=== PATIENT | female | born 1995 | race Two or more races ===

== ENCOUNTER → 2019-07-07 | Outpatient (CLI) | payer BC ==
[2019-07-07 08:22] LABS: Basophils # (auto) 0 10 ^3/uL (0-0.2); Basophils % (auto) 0.6 % (0.0-2.0); Eosinophils # (auto) 0.1 10 ^3/uL (0-0.8); Eosinophils % (auto) 1.8 % (0.0-7.0); Hematocrit 38.6 % (36.0-46.0); Hemoglobin 12.6 g/dL (12.2-16.2); Lymphocytes # (auto) 1.1 10 ^3/uL (0.4-5.4); Lymphocytes % (auto) 25.7 % (10.0-50.0); Mean Corpuscular Hemoglobin 28.4 pg (28.0-32.0); Mean Corpuscular Hgb Conc. 32.6 g/dL (32.0-36.0); Monocytes # (auto) 0.3 10 ^3/uL (0-1.3); Monocytes % (auto) 6.1 % (0.0-12.0); Neutrophils # (auto) 2.8 10 ^3/uL (1.6-8.6); Neutrophils % (auto) 65.8 % (37.0-80.0); Platelet Count (auto) 216 10^3/uL (140-450); Red Blood Cells 4.44 10^6/uL (4.0-5.20); Red Cell Distribution Width 12.6 % (11.8-14.3); White Blood Cell 4.2 10^3/uL (4.4-10.8)
[2019-07-07 08:45] LABS: Calcium 8.9 mg/dL (8.5-10.1); Potassium 4.1 mmol/L (3.5-5.1)
[2019-07-07 08:53] LABS: Albumin 3.6 g/dL (3.4-5.0); BUN/Creatinine Ratio 10.3; Bilirubin, Total 0.3 mg/dL (0.2-1.0); Total Protein 7.8 g/dL (6.4-8.2)
== END | disposition home or self-care (01) ==
LOC: LAB 07:44
PROVIDERS: ATTEND Physician Assistant
DX: Z00.00 Encounter for general adult medical examination without abnormal findings (principal); M54.6 Pain in thoracic spine; M54.2 Cervicalgia; F41.9 Anxiety disorder, unspecified; J30.2 Other seasonal allergic rhinitis; N30.00 Acute cystitis without hematuria
CPT/HCPCS: 36415; 80053; 80061; 85025

== ENCOUNTER → 2020-01-01 | Day surgery (SDC) | payer BC ==
[2019-12-28 11:52] LABS: Basophils # (auto) 0.1 10 ^3/uL (0-0.2); Basophils % (auto) 1.2 % (0.0-2.0); Eosinophils # (auto) 0.1 10 ^3/uL (0-0.8); Eosinophils % (auto) 2.9 % (0.0-7.0); Hematocrit 39.1 % (36.0-46.0); Hemoglobin 12.8 g/dL (12.2-16.2); Lymphocytes # (auto) 1.5 10 ^3/uL (0.4-5.4); Lymphocytes % (auto) 30.1 % (10.0-50.0); Mean Corpuscular Hemoglobin 28.5 pg (28.0-32.0); Mean Corpuscular Hgb Conc. 32.8 g/dL (32.0-36.0); Monocytes # (auto) 0.4 10 ^3/uL (0-1.3); Monocytes % (auto) 8.7 % (0.0-12.0); Neutrophils # (auto) 2.8 10 ^3/uL (1.6-8.6); Neutrophils % (auto) 57.1 % (37.0-80.0); Nucleated Red Blood Cells % 0.1 %; Platelet Count (auto) 229 10^3/uL (140-450); Red Cell Distribution Width 13.7 % (11.8-14.3); White Blood Cell 4.9 10^3/uL (4.4-10.8)
[2019-12-28 12:14] LABS: INR 1.09 (0.9-1.15); Partial Thromboplastin Time 31.9 sec (23.0-31.2)
[~2020-01-01] VITALS: Ht 160 cm; Wt 54.4 kg
[~2020-01-01] MED LIST: LIDOCAINE VISCOUS 2% 15ML UD ONE; SODIUM CHLORIDE LOCK 10 ML ONE; diphenhdrAMINE HCL 50 MG/1 ML VL ONE
[2020-01-01] MEDS: MIDAZOLAM HCL 5 MG/ML-1ML VIAL ONE ×3 (13:37→13:43)
[2020-01-01] MEDS: fentaNYL CITRATE 100 MCG/2 ML VL ONE ×3 (13:37→13:43)
[2020-01-01 14:27] VITALS: BP 111/71
== END | disposition home or self-care (01) ==
LOC: GI 11:48
PROVIDERS: ATTEND Internal Medicine Gastroenterology
DX: R11.2 Nausea with vomiting, unspecified (principal); K29.50 Unspecified chronic gastritis without bleeding; Z20.828 Contact with and (suspected) exposure to other viral communicable diseases; Z98.890 Other specified postprocedural states; Z79.899 Other long term (current) drug therapy
CPT/HCPCS: 36415; 43239; 81025; 85025; 85610; 85730; 88305; 88342; J1200; J2250; J3010; J7030; U0003; 99152

== ENCOUNTER 2020-02-23 06:14 | Inpatient (IN) | payer BC ==
[2020-02-18 09:36] LABS: Basophils # (auto) 0 10 ^3/uL (0-0.2); Eosinophils # (auto) 0.1 10 ^3/uL (0-0.8); Eosinophils % (auto) 1.9 % (0.0-7.0); Hematocrit 42.6 % (36.0-46.0); Hemoglobin 13.8 g/dL (12.2-16.2); Lymphocytes # (auto) 1.1 10 ^3/uL (0.4-5.4); Lymphocytes % (auto) 28.5 % (10.0-50.0); Mean Corpuscular Hemoglobin 28.7 pg (28.0-32.0); Mean Corpuscular Hgb Conc. 32.3 g/dL (32.0-36.0); Mean Corpuscular Volume 88.9 fL (80.0-100.0); Monocytes # (auto) 0.2 10 ^3/uL (0-1.3); Monocytes % (auto) 6.3 % (0.0-12.0); Neutrophils # (auto) 2.3 10 ^3/uL (1.6-8.6); Neutrophils % (auto) 62.3 % (37.0-80.0); Nucleated Red Blood Cells % 0.1 %; Platelet Count (auto) 306 10^3/uL (140-450); Red Cell Distribution Width 13.2 % (11.8-14.3); White Blood Cell 3.7 10^3/uL (4.4-10.8)
[2020-02-18 09:45] LABS: Urine Bacteria NONE SEEN /hpf (None Seen); Urine Blood Negative /uL (Negative); Urine Specific Gravity 1.024 (1.001-1.035); Urine WBC 1 /hpf (0 - 5)
[2020-02-18 09:54] LABS: INR 1.07 (0.9-1.15); Partial Thromboplastin Time 30.2 sec (23.0-31.2)
[2020-02-18 09:59] LABS: Albumin 4.1 g/dL (3.4-5.0); Calcium 9.2 mg/dL (8.5-10.1)
[2020-02-18 10:05] LABS: BUN/Creatinine Ratio 7.3; Bilirubin, Total 0.4 mg/dL (0.2-1.0); Total Protein 8.2 g/dL (6.4-8.2)
[~2020-02-23] VITALS: Ht 160 cm; Wt 58.7 kg
[~2020-02-23 06:14] MED LIST changes: -LIDOCAINE VISCOUS 2% 15ML UD ONE; +OMEP20TA PO; -SODIUM CHLORIDE LOCK 10 ML ONE; -diphenhdrAMINE HCL 50 MG/1 ML VL ONE
[2020-02-23] MEDS ORDERED: ceFAZolin 1GM/50ML 50 ML IV ONE (06:59)
[2020-02-23] MEDS ORDERED: ROCURONIUM 10MG/ML 10ML VIAL IV ONE (07:10)
[2020-02-23] MEDS ORDERED: fentaNYL CITRATE 100 MCG/2 ML VL ONE (07:21)
[2020-02-23] MEDS ORDERED: MEPERIDINE HCL (50 MG/ML) 1 ML VIAL ONE (07:21)
[2020-02-23] MEDS ORDERED: MIDAZOLAM HCL 1MG/1ML-2 ML VIAL ONE (07:22)
[2020-02-23] MEDS ORDERED: DexAMETHasone SOD PHOS 10MG/1ML VIAL INJ ONE (07:26)
[2020-02-23] MEDS ORDERED: PROPOFOL 10 MG/ML 20 ML IV ONE (07:52)
[2020-02-23] MEDS: D5W/SOD CHL 0.45%/KCL 20MEQ 1,000 ML IV SCH ×2 (08:30→22:18)
[2020-02-23] MEDS ORDERED: HYDROmorphone HCL 2 MG/ML VL IV PRN ×2 (08:30→08:45)
[2020-02-23] MEDS ORDERED: ONDANSETRON HCL 4 MG/2 ML VIAL IV PRN ×2 (08:30→08:45)
[2020-02-23] MEDS ORDERED: ACETAMINOPHEN/CODEINE#3 (300/30mg) TAB PO PRN (08:30)
[2020-02-23] MEDS ORDERED: MIDAZOLAM HCL 1MG/1ML-2 ML VIAL IV PRN (08:45)
[2020-02-23] MEDS ORDERED: MORPHINE SULFATE 4 MG/ML SYR/VIAL IV PRN (08:45)
[2020-02-23] MEDS ORDERED: ePHEDrine SULFATE 50 MG/ML AMP IV PRN (08:45)
[2020-02-23] MEDS ORDERED: KETOROLAC TROMETH 30 MG/ML 1ML VIAL IV ONE (08:45)
[2020-02-23] MEDS ORDERED: LABETALOL HCL 5 MG/ML 4ML SYRINGE IV PRN (08:45)
[2020-02-23] MEDS ORDERED: cefTRIAXone 1GM/50ML D5W 50 ML IV SCH (09:00)
[2020-02-23] MEDS ORDERED: PANTOPRAZOLE 40 MG/10 ML VIAL INJ IV SCH (10:00)
[2020-02-23 17:20] VITALS: BP 107/67
[2020-02-23 18:00] VITALS: BP 116/72
--- NOTE | 2020-02-23 18:30 | NUR ---
CAME ON BED FROM POST OP, RECEIVED PATIENT ALERT AND ORIENTED X4, NOT IN DISTRESS, CLEAR LS IN BILATERAL LUNG LOBES, RR=18 SAT=98%, DENIED SOB AND CP, DEEP BREATHING AND COUGHING ENCOURAGED, VERBALIZED UNDERSTANDING, ABDOMEN LAPAROSCOPIC INCISIONS X3 INTACT COVERED WITH DERMA SEAL, NO REDNESS OR EDEMA NOTED, TOLERATING ABDOMINAL BINDER, GENERAL SKIN DRY AND INTACT, VS T=98.2 RR=18 SAT=98% RA, HEART R=78 XT=824/68, HEAD OF BED ELEVATED, BED ON LOW POSITION, RAILS UP X2, CALL LIGHT ON REACH, WILL CONTINUE MONITORING.
--- NOTE | 2020-02-23 19:40 | NUR ---
TOLERATED CLEAR LIQUID DIET DINNER TRAY WELL, OUT OF BED X1 WITH OUT ASSISTANCE, TOLERATED WELL, RESTING ON BED, REPORT WAS GIVEN TO THE SEISMOLOGY TEACHER RN.
[2020-02-23 22:00] VITALS: BP 123/79
[2020-02-24 05:00] VITALS: BP 102/63
[2020-02-24 06:53] LABS: Basophils # (auto) 0 10 ^3/uL (0-0.2); Basophils % (auto) 0.2 % (0.0-2.0); Eosinophils # (auto) 0 10 ^3/uL (0-0.8); Eosinophils % (auto) 0.1 % (0.0-7.0); Hematocrit 38.9 % (36.0-46.0); Hemoglobin 12.6 g/dL (12.2-16.2); Lymphocytes # (auto) 1.2 10 ^3/uL (0.4-5.4); Lymphocytes % (auto) 14.4 % (10.0-50.0); Mean Corpuscular Hemoglobin 28.6 pg (28.0-32.0); Mean Corpuscular Hgb Conc. 32.4 g/dL (32.0-36.0); Mean Corpuscular Volume 88.1 fL (80.0-100.0); Monocytes # (auto) 0.7 10 ^3/uL (0-1.3); Monocytes % (auto) 8.3 % (0.0-12.0); Neutrophils # (auto) 6.4 10 ^3/uL (1.6-8.6); Nucleated Red Blood Cells % 0.1 %; Platelet Count (auto) 247 10^3/uL (140-450); Red Blood Cells 4.42 10^6/uL (4.0-5.20); Red Cell Distribution Width 13.1 % (11.8-14.3); White Blood Cell 8.3 10^3/uL (4.4-10.8)
[2020-02-24 07:08] LABS: Albumin 3.6 g/dL (3.4-5.0); Potassium 3.5 mmol/L (3.5-5.1)
[2020-02-24 07:12] LABS: BUN/Creatinine Ratio 5.4; Bilirubin, Total 0.5 mg/dL (0.2-1.0); Total Protein 7.6 g/dL (6.4-8.2)
--- NOTE | 2020-02-24 07:30 | NUR ---
Opening Shift Note Assumed care of patient, awake and alert. No S/S of distress/SOB or pain. Bed is low, locked with 2x side rails up. Call light is within reach. Instructed on POC and to call for assist PRN, will continue to monitor for changes Q1hr and PRN.
--- NOTE | 2020-02-24 08:36 | NUR ---
Report received from weight shifter RN and was given to Idania GA day shift.
[2020-02-24 09:00] VITALS: BP 109/69
[2020-02-24] MEDS ORDERED: traMADol HCL 50 MG TAB PO PRN (09:00)
[2020-02-24] MEDS ORDERED: ONDA-144 PO (09:27)
[2020-02-24] MEDS ORDERED: PANT40T PO (09:27)
[2020-02-24] MEDS ORDERED: CEPH250C PO (09:27)
[2020-02-24] MEDS ORDERED: CEPHALEXIN 250 MG CAP PO SCH (10:00)
[2020-02-24] MEDS ORDERED: PANTOPRAZOLE 40 MG TAB PO SCH (10:00)
[2020-02-24 13:00] VITALS: BP 122/69
[2020-02-24 14:02] VITALS: BP 122/69
--- NOTE | 2020-02-24 16:09 | NUR ---
Discharge instructions given as ordered. Encourage to follow up with PMD as instructed. All questions and concerns addressed. Patient verbalized understanding. Patient given hard copy of Tramadol prescription. IV removed with catheter intact, pressure dressing applied. Patient taken to vehicle via wheelchair with all personal belongings, accompanied by staff. No distress noted at time of departure.
== END 2020-02-24 16:10 | disposition home or self-care (01) | DRG 419 ==
LOC: SUR 06:14 → OVERFLOW 06:15 → WEST WING 17:01
PROVIDERS: ADMIT Internal Medicine; ATTEND Internal Medicine
PROC: 0FT44ZZ Resection of Gallbladder, Percutaneous Endoscopic Approach (ICD-10-PCS; principal; 2020-02-22)
DX: K80.10 Calculus of gallbladder with chronic cholecystitis without obstruction (principal); Z20.828 Contact with and (suspected) exposure to other viral communicable diseases; K21.9 Gastro-esophageal reflux disease without esophagitis; Z90.49 Acquired absence of other specified parts of digestive tract
CPT/HCPCS: 36415; 80053; 81001; 84702; 85025; 85610; 85730; 86850; 86900; 86901; C9113; G0378; J0690; J1100; J2250; J2405; J2704

== ENCOUNTER 2021-07-03 16:32 | Emergency (ER) | payer BC, MEDICAID ==
[~2021-07-03] VITALS: Ht 160 cm; Wt 54.4 kg
[~2021-07-03 16:32] MED LIST changes: +CEPH-322 PO; +ONDA-144 PO; +PANT40T PO
[2021-07-03 19:05] LABS: Basophils # (auto) 0.1 10 ^3/uL (0-0.2); Basophils % (auto) 1.9 % (0.0-2.0); Eosinophils # (auto) 0.1 10 ^3/uL (0-0.8); Hematocrit 36.7 % (36.0-46.0); Hemoglobin 12.3 g/dL (12.2-16.2); Lymphocytes # (auto) 1.6 10 ^3/uL (0.4-5.4); Lymphocytes % (auto) 26.6 % (10.0-50.0); Mean Corpuscular Hemoglobin 28.6 pg (28.0-32.0); Mean Corpuscular Hgb Conc. 33.4 g/dL (32.0-36.0); Mean Corpuscular Volume 85.4 fL (80.0-100.0); Monocytes # (auto) 0.2 10 ^3/uL (0-1.3); Monocytes % (auto) 3.9 % (0.0-12.0); Neutrophils % (auto) 66.6 % (37.0-80.0); Nucleated Red Blood Cells % 0.1 %; Red Cell Distribution Width 13.9 % (11.8-14.3)
[2021-07-03 19:22] LABS: Albumin 3.8 g/dL (3.4-5.0); Calcium 8.9 mg/dL (8.5-10.1); Potassium 3.7 mmol/L (3.5-5.1)
[2021-07-03 19:27] LABS: BUN/Creatinine Ratio 8.1; Bilirubin, Total 0.2 mg/dL (0.2-1.0); Total Protein 7.8 g/dL (6.4-8.2)
[2021-07-03 21:31] LABS: Urine Bacteria FEW /hpf (None Seen); Urine Blood Negative /uL (Negative); Urine Specific Gravity 1.005 (1.001-1.035); Urine WBC <1 /hpf (0 - 5)
[2021-07-03 22:00] VITALS: BP 121/80
== END 2021-07-03 22:21 | disposition home or self-care (01) ==
LOC: ER 16:32
DX: O03.9 Complete or unspecified spontaneous abortion without complication (principal); Z3A.09 9 weeks gestation of pregnancy; Z79.899 Other long term (current) drug therapy
CPT/HCPCS: 36415; 76801; 76817; 80053; 81001; 84702; 85025; 86850; 86900; 86901

== ENCOUNTER 2021-07-09 15:33 | Emergency (ER) | payer BC, MEDICAID ==
[~2021-07-09] VITALS: Ht 160 cm; Wt 54.4 kg
[2021-07-09 16:47] LABS: Basophils # (auto) 0 10 ^3/uL (0-0.2); Basophils % (auto) 0.4 % (0.0-2.0); Eosinophils # (auto) 0 10 ^3/uL (0-0.8); Eosinophils % (auto) 0.2 % (0.0-7.0); Hemoglobin 11.5 g/dL (12.2-16.2); Lymphocytes # (auto) 0.9 10 ^3/uL (0.4-5.4); Lymphocytes % (auto) 6.9 % (10.0-50.0); Mean Corpuscular Hemoglobin 28.7 pg (28.0-32.0); Mean Corpuscular Hgb Conc. 33.8 g/dL (32.0-36.0); Mean Corpuscular Volume 84.9 fL (80.0-100.0); Monocytes # (auto) 0.4 10 ^3/uL (0-1.3); Monocytes % (auto) 2.9 % (0.0-12.0); Neutrophils # (auto) 11.4 10 ^3/uL (1.6-8.6); Neutrophils % (auto) 89.6 % (37.0-80.0); Nucleated Red Blood Cells % 0.1 %; Red Cell Distribution Width 13.9 % (11.8-14.3); White Blood Cell 12.8 10^3/uL (4.4-10.8)
[2021-07-09 17:02] LABS: Albumin 3.6 g/dL (3.4-5.0); BUN/Creatinine Ratio 6.6; Calcium 8.8 mg/dL (8.5-10.1); Potassium 3.6 mmol/L (3.5-5.1)
[2021-07-09 17:08] LABS: Bilirubin, Total 0.3 mg/dL (0.2-1.0); Total Protein 7.6 g/dL (6.4-8.2)
[2021-07-09 19:42] LABS: Urine Bacteria NONE SEEN /hpf (None Seen); Urine Blood 3+ /uL (Negative)
[2021-07-09 23:00] VITALS: BP 120/78
== END 2021-07-09 23:31 | disposition home or self-care (01) ==
LOC: ER 15:33
DX: O03.9 Complete or unspecified spontaneous abortion without complication (principal)
CPT/HCPCS: 36415; 76801; 80053; 81001; 84702; 85025; 86850; 86900; 86901

== ENCOUNTER → 2021-07-11 | Outpatient (CLI) | payer BC, MEDICAID | END | disposition home or self-care (01) | LOC: LAB 10:54 | PROVIDERS: ATTEND Obstetrics & Gynecology Obstetrics | DX: O03.9 Complete or unspecified spontaneous abortion without complication (principal) | CPT/HCPCS: 36415; 84702 ==

== ENCOUNTER → 2021-07-14 | Outpatient (CLI) | payer BC, MEDICAID | END | disposition home or self-care (01) | LOC: LAB 11:02 | PROVIDERS: ATTEND Obstetrics & Gynecology Obstetrics | DX: O03.9 Complete or unspecified spontaneous abortion without complication (principal) | CPT/HCPCS: 36415; 84702 ==

== ENCOUNTER → 2022-05-04 | Outpatient (CLI) | payer BC, MEDICAID ==
[2022-05-04 11:15] LABS: Follicle Stimulating Hormone 4.4 IU/L (SEE BELOW); Leuteinizing Hormone 6.8 IU/L
== END | disposition home or self-care (01) ==
LOC: LAB 10:05
PROVIDERS: ATTEND Obstetrics & Gynecology
DX: N92.0 Excessive and frequent menstruation with regular cycle (principal)
CPT/HCPCS: 36415; 82670; 83001; 83002; 84403; 84443